=== PATIENT | male | born 1965 | race Caucasian/White ===

== ENCOUNTER 2024-02-09 10:17 | Day surgery (SDC) | payer BC ==
[2024-02-09] MEDS: Lactated Ringers 1,000 ML IV SCH (10:39)
[2024-02-09] MEDS ORDERED: fentaNYL 50 MCG/ML SDV ONE (10:59)
[2024-02-09] MEDS ORDERED: Midazolam 1 MG/ML 2 ML SDV ONE (10:59)
[2024-02-09] MEDS ORDERED: Flumazenil 0.1 MG/ML 10 ML MDV ONE (10:59)
[2024-02-09] MEDS ORDERED: Ketamine 200 MG/20 ML MDV ONE (10:59)
[2024-02-09] MEDS ORDERED: ePHEDrine 50 MG/ML SDV ONE (10:59)
[2024-02-09] MEDS ORDERED: Propofol 200 MG/20 ML SDV ONE ×2 (10:59)
== END 2024-02-09 12:05 | disposition home or self-care (01) ==
LOC: CC.SDS 10:17
PROVIDERS: ATTEND Family Medicine
DX: Z12.11 Encounter for screening for malignant neoplasm of colon (principal); K57.30 Diverticulosis of large intestine without perforation or abscess without bleeding; I83.819 Varicose veins of unspecified lower extremity with pain; I87.2 Venous insufficiency (chronic) (peripheral); E66.01 Morbid (severe) obesity due to excess calories; Z68.41 Body mass index [BMI] 40.0-44.9, adult; Z87.891 Personal history of nicotine dependence; Z79.899 Other long term (current) drug therapy
CPT/HCPCS: 00812; J2250; J2704; J3010; J3490; J7120

== ENCOUNTER 2024-04-02 10:24 | Day surgery (SDC) | payer BC ==
[2024-04-02 10:53] VITALS: BP 122/75; PULSE 96
[2024-04-02] MEDS: Lidocaine 1% 30 ML SDV SUBCUT ONE ×2 (12:08→12:29)
== END 2024-04-02 13:02 | disposition home or self-care (01) ==
LOC: CC.SDS 10:24
PROVIDERS: ATTEND Family Medicine
DX: I83.813 Varicose veins of bilateral lower extremities with pain (principal); I87.2 Venous insufficiency (chronic) (peripheral); E66.01 Morbid (severe) obesity due to excess calories; R73.03 Prediabetes; L97.509 Non-pressure chronic ulcer of other part of unspecified foot with unspecified severity; Z91.041 Radiographic dye allergy status; Z87.891 Personal history of nicotine dependence; Z68.41 Body mass index [BMI] 40.0-44.9, adult; Z79.899 Other long term (current) drug therapy
CPT/HCPCS: C1888; J3490